=== PATIENT | female | born 1970 | race Caucasian/White ===

== ENCOUNTER → 2016-12-02 | Outpatient (CLI) | payer BC, OTHER ==
--- NOTE | 2016-12-02 16:35 | Diagnostic Imaging Report ---
EXAMINATION: Bilateral digital screening mammogram with CAD. The current study was also evaluated with a Computer Aided Detection (CAD) system. INDICATION: Screening. No current complaints stated on the questionnaire. COMPARISON: 10/25/14. FINDINGS: The breasts have scattered fibroglandular densities. There is a developing focal asymmetry, measuring 7 mm in the upper aspect of the right breast. This has low density and lobulated margins in favor of benign etiology. The left breast demonstrates no definite change. Punctate calcifications are noted. IMPRESSION: Focal compression views and ultrasound evaluation for upper right breast focal asymmetry is recommended. ACR BI-RADS Category 0: Incomplete. (Needs additional imaging evaluation). Result letter will be mailed to the patient. Note: At least 10% of breast cancer is not imaged by mammography. Dictated by: Dictated on workstation # [id number]
== END ==
LOC: RAD 13:16
PROVIDERS: ATTEND Nurse Practitioner Family
DX: Z12.31 Encounter for screening mammogram for malignant neoplasm of breast (principal)
CPT/HCPCS: 77067

== ENCOUNTER → 2016-12-09 | Outpatient (CLI) | payer BC, OTHER ==
--- NOTE | 2016-12-09 19:38 | Diagnostic Imaging Report ---
Right breast diagnostic mammogram. INDICATION: Focal asymmetry in the central upper aspect of the right breast. Right breast pain. The current study was also evaluated with a Computer Aided Detection (CAD) system. FINDINGS: Focal compression views demonstrate persistent indeterminate 6 mm focal asymmetry in the upper aspect of the right breast. IMPRESSION: Persistent indeterminate 6 mm focal asymmetry in the upper aspect of the right breast. Ultrasound evaluation pending. ACR BI-RADS Category 0: Incomplete. (Needs additional imaging evaluation). Result letter will be mailed to the patient. Note: At least 10% of breast cancer is not imaged by mammography. Dictated by: Dictated on workstation # [id number]
--- NOTE | 2016-12-09 19:42 | Diagnostic Imaging Report ---
EXAMINATION: Right breast ultrasound. INDICATION: focal asymmetry in the upper aspect of the right breast. FINDINGS: There is a simple cyst measuring 7 x 3 x 2 mm at the 5 o'clock zone, 8 cm from the nipple. This matches the location and size of mammographic focal asymmetry. The four-quadrants and retroareolar region of the right breast demonstrate no other abnormality. IMPRESSION: Simple cyst in the upper aspect of the right breast explains the focal asymmetry seen on mammography. No suspicious lesion. Annual screening mammogram is recommended. BI-RADS 2. Dictated by: Dictated on workstation # [id number]
== END ==
LOC: RAD 07:48
PROVIDERS: ATTEND Nurse Practitioner Family
DX: R92.8 Other abnormal and inconclusive findings on diagnostic imaging of breast (principal)
CPT/HCPCS: 76641